=== PATIENT | female | born 2000 | race American Indian/Alaskan Native ===

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

== ENCOUNTER 2021-03-08 23:28 | Emergency (ER) | payer MEDICAID, OTHER ==
[2021-03-09 02:33] VITALS: BP 124/74
[2021-03-09] MEDS: CLINDAMYCIN 300 MG CAP PO ONE (04:02)
[2021-03-09] MEDS: ACETAMINOPHEN 500 MG TAB PO ONE (04:03)
[2021-03-09] MEDS: ONDANSETRON 4 MG ODT TAB PO ONE ×2 (04:03→06:05)
[2021-03-09] MEDS: HYDROmorphone 1 MG/1 ML INJ IM ONE (04:03)
[2021-03-09] MEDS: LIDOCAINE (1%) 10 MG/1 ML VIAL 20 ML MDV INFILTRATI ONE (04:03)
--- NOTE | 2021-03-09 05:53 | Emergency Department Report ---
ED General Adult HPI - General Chief complaint: Skin/Abscess/Foreign Body Stated complaint: BUMP ON LEFT BUTTOCK Source: patient Mode of arrival: Ambulatory Limitations: No Limitations - History of Present Illness Initial comments: Patient is a A0 20-year-old -Luxembourger female with no past medical history and who is approximately 6 months gestation and who presents to the ED with complaint of acute onset persistent painful swollen mild erythematous maculopapular rash on left gluteal cleft for the last 1 week, worse in the last 2 days. Patient states that she has not been able to walk because of severe pain in the buttocks due to the rash. Patient denies fever, chills, nausea, vomiting, dizziness, syncope, vaginal bleeding, vaginal discharge, diarrhea, traumatic injury, low back pain, chest pain or shortness of breath. MD Complaint: Left gluteal cleft abscess pain -: Sudden, week(s) (1) Location: buttocks (Left gluteal cleft) Radiation: non-radiation Severity scale (0 -10): 9 Quality: aching, sharp Consistency: constant Improves with: none Worsens with: movement Associated Symptoms: loss of appetite, malaise, rash (Swollen, erythematous maculopapular rash on left gluteal cleft). denies: denies other symptoms, confusion, chest pain, cough, diaphoresis, fever/chills, headaches, nausea/vomiting, seizure, shortness of breath, syncope, weakness, other Treatments Prior to Arrival: none - Related Data Previous Rx's Medication Instructions Recorded Last Taken Type Fluticasone [Flonase] 1 spray NS QDAY #1 bottle 03/03/19 Unknown Rx Ibuprofen [Motrin] 600 mg PO Q8H PRN #30 tablet 03/03/19 Unknown Rx Loratadine (Nf) [Claritin] 10 mg PO DAILY #30 tablet 03/03/19 Unknown Rx methOCARBAMOL [Robaxin TAB] 500 mg PO BID #20 tab 03/03/19 Unknown Rx Clindamycin [Clindamycin CAP] 300 mg PO Q8HR #60 capsule 03/09/21 Unknown Rx HYDROcodone/APAP 5-325 [[place] 1 each PO Q6HR PRN #12 tablet 03/09/21 Unknown Rx 5/325] Allergies Allergy/AdvReac Type Severity Reaction Status Date / Time amoxicillin Allergy Hives Verified 03/03/19 17:15 ED Review of Systems ROS: Stated complaint: BUMP ON LEFT BUTTOCK Other details as noted in HPI Constitutional: denies: chills, fever Eyes: denies: eye pain, eye discharge, vision change ENT: denies: ear pain, throat pain, dental pain, epistaxis, congestion Respiratory: denies: cough, shortness of breath, wheezing Cardiovascular: denies: chest pain, palpitations Endocrine: no symptoms reported Gastrointestinal: denies: abdominal pain, nausea, vomiting, diarrhea Genitourinary: denies: urgency, dysuria, discharge Musculoskeletal: denies: back pain, joint swelling, arthralgia Skin: denies: rash, lesions Neurological: denies: headache, weakness, paresthesias Psychiatric: denies: anxiety, depression Hematological/Lymphatic: denies: easy bleeding, easy bruising ED Past Medical Hx - Past Medical History Previous Medical History?: No - Surgical History Past Surgical History?: No - Social History Smoking Status: Never Smoker Substance Use Type: None - Medications Home Medications: Home Medications Medication Instructions Recorded Confirmed Last Taken Type Fluticasone [Flonase] 1 spray NS QDAY #1 bottle 03/03/19 Unknown Rx Ibuprofen [Motrin] 600 mg PO Q8H PRN #30 tablet 03/03/19 Unknown Rx Loratadine (Nf) [Claritin] 10 mg PO DAILY #30 tablet 03/03/19 Unknown Rx methOCARBAMOL [Robaxin TAB] 500 mg PO BID #20 tab 03/03/19 Unknown Rx Clindamycin [Clindamycin CAP] 300 mg PO Q8HR #60 capsule 03/09/21 Unknown Rx HYDROcodone/APAP 5-325 [[place] 1 each PO Q6HR PRN #12 tablet 03/09/21 Unknown Rx 5/325] ED Physical Exam - General Limitations: No Limitations General appearance: alert, in no apparent distress - Head Head exam: Present: atraumatic, normocephalic, normal inspection - Eye Eye exam: Present: normal appearance, PERRL, EOMI Pupils: Present: normal accommodation - ENT ENT exam: Present: normal exam, normal orophraynx, mucous membranes moist, TM's normal bilaterally, normal external ear exam - Neck Neck exam: Present: normal inspection, full ROM - Respiratory Respiratory exam: Present: normal lung sounds bilaterally. Absent: respiratory distress, wheezes, rales, rhonchi, chest wall tenderness, accessory muscle use, decreased breath sounds - Cardiovascular Cardiovascular Exam: Present: normal rhythm, tachycardia, normal heart sounds. Absent: systolic murmur, diastolic murmur, rubs, gallop - GI/Abdominal GI/Abdominal exam: Present: soft, normal bowel sounds. Absent: tenderness, guarding, rebound, hyperactive bowel sounds, hypoactive bowel sounds - Extremities Exam Extremities exam: Present: normal inspection, full ROM, normal capillary refill - Back Exam Back exam: Present: normal inspection, full ROM. Absent: tenderness, CVA tenderness (R), CVA tenderness (L), muscle spasm, paraspinal tenderness, vertebral tenderness - Neurological Exam Neurological exam: Present: alert, oriented X3, CN II-XII intact, normal gait, reflexes normal - Psychiatric Psychiatric exam: Present: normal affect, normal mood - Skin Skin exam: Present: warm, dry, intact, rash (Swollen, severely tender, fluctuant erythematous maculopapular rash on left gluteal cleft), erythema, other (The technical clerk Ms. Reyna present as a real time trader during the I&D procedure) ED Course Vital Signs 03/09/21 02:29 Temperature 99.1 F Pulse Rate 111 H Respiratory 18 Rate Blood Pressure 124/74 O2 Sat by Pulse 100 Oximetry - I & D Left Buttocks Type of Procedure: Simple (Left gluteal cleft swollen fluctuant erythematous rash) Site: Left gluteal cleft Blade Size: 11 I & D Procedure: betadine prep, sterile drapes applied, sterile dressing applied, gauze wick placed Progress: The area was extensively cleaned with normal saline and Betadine solutions. Lidocaine 1% solution was infiltrated in the area for anesthesia. When anesthesia was fully achieved, the wound was incised and drained and thick copious greenish-black malodorous discharge drained from the wound. The wound was then extensively debrided with normal saline and fluid collections were broken with hemostat. The wound was then packed with iodoform quarter inch gauze and a total of 25 cm gauze was used. The wound was then dressed appropriately with 4 x 4 gauze and Tegaderm. Patient tolerated the procedure well. On reevaluation, patient felt better, pain well controlled with medications. Patient was therefore discharged home on pain medications and antibiotics and advised to follow-up with her [employer] physician in 7 to 10 days for reevaluation or return to the ED immediately if symptoms get worse. Patient was otherwise advised to return to the ED in 2 days for wound recheck and packing removal. ED Medical Decision Making - Medical Decision Making This is a A0 20-year-old -Luxembourger female with no past medical history and who is approximately 6 months gestation and who presents to the ED with complaint of acute onset persistent painful swollen mild erythematous maculopapular rash on left gluteal cleft for the last 1 week, worse in the last 2 days. Patient states that she has not been able to walk because of severe pain in the buttocks due to the rash. In the ED, patient is alert and oriented x3 and is not in any distress but appears to be in significant pain, tachycardic but afebrile in triage. Patient was treated for pain in the ED and also given initial oral antibiotics in the ED. The area was extensively cleaned with normal saline and Betadine solutions. Lidocaine 1% solution was infiltrated in the area for anesthesia. When anesthesia was fully achieved, the wound was incised and drained and thick copious greenish-black malodorous discharge drained from the wound. The wound was then extensively debrided with normal saline and fluid collections were broken with hemostat. The wound was then packed with iodoform quarter inch gauze and a total of 25 cm gauze was used. The wound was then dressed appropriately with 4 x 4 gauze and Tegaderm. Patient tolerated the procedure well. On reevaluation, patient felt better, pain well controlled with medications. Patient was therefore discharged home on pain medications and antibiotics and advised to follow-up with her [employer] physician in 7 to 10 days for reevaluation or return to the ED immediately if symptoms get worse. Patient was otherwise advised to return to the ED in 2 days for wound recheck and packing removal. - Differential Diagnosis Cellulitis; gluteal abscess; folliculitis; Critical care attestation.: If time is entered above; I have spent that time in minutes in the direct care of this critically ill patient, excluding procedure time. ED Disposition Clinical Impression: Cellulitis, gluteal, right, Cutaneous abscess of buttock Disposition: HOME / SELF CARE / HOMELESS Is pt being admited?: No Does the pt Need Aspirin: No Condition: Stable Instructions: Incision and Drainage, Care After, Skin Abscess, [id number], Cellulitis, Adult, [id number] Additional Instructions: Take medication with food, drink plenty of fluids and follow-up with your primary care physician in 7 to 10 days for reevaluation. Return to the ED immed iately if symptoms get worse. Prescriptions: Clindamycin [Clindamycin CAP] 300 mg PO Q8HR #60 capsule HYDROcodone/APAP 5-325 [[place] 5/325] 1 each PO Q6HR PRN #12 tablet PRN Reason: Pain Referrals: [facility] [Provider Group] - 3-5 Days Time of Disposition: 05:45 Print Language: CITIZEN OF [place]
[2021-03-09] MEDS: oxyCODONE /ACETAMINOPHEN 5-325MG TAB PO ONE (06:05)
== END 2021-03-09 06:10 | disposition home or self-care (01) ==
LOC: ED 23:28
DX: L02.31 Cutaneous abscess of buttock (principal); L03.317 Cellulitis of buttock; Z88.0 Allergy status to penicillin; Z79.899 Other long term (current) drug therapy
CPT/HCPCS: 10060; 96372; 99282; J1170; Q0162